=== PATIENT | female | born 1945 | race Caucasian/White ===

== ENCOUNTER 2019-09-19 07:06 | Day surgery (SDC) | payer OTHER, BC ==
[2019-09-18 09:35] VITALS: BMI 36.3
[~2019-09-19 07:06] MED LIST: POVIDONE-IODINE 5% OPHTHALMIC PREP 30 ML SOLUTION OS ONE; TETRACAINE 0.5% HCL 0.6ML DROPPER.BOTTLE OS ONE
[2019-09-19] MEDS: OFLOXACIN 0.3% OPHTHALMIC SOLUTION 5 ML BOTTLE OP SCH ×3 (07:45→08:05)
[2019-09-19] MEDS: TROPICAMIDE 1% OPHTH SOLN 15 ML BOTTLE OP SCH ×3 (07:45→08:05)
[2019-09-19] MEDS: CYCLOPENTOLATE HCL 1% OPHTH SOLN 2 ML BOTTLE OP SCH ×3 (07:45→08:05)
[2019-09-19] MEDS: PHENYLEPHRINE 2.5% OPHTH SOLN 15 ML BOTTLE OP SCH ×3 (07:45→08:05)
[2019-09-19] MEDS: KETOROLAC TROMETHAMINE 0.5% EYE DROP 1 DROP DROPS OP SCH ×3 (07:45→08:05)
[2019-09-19] MEDS ORDERED: OFLOXACIN 0.3% OPHTHALMIC SOLUTION 5 ML BOTTLE ONE (07:46)
[2019-09-19] MEDS ORDERED: CYCLOPENTOLATE HCL 1% OPHTH SOLN 2 ML BOTTLE ONE (07:46)
[2019-09-19] MEDS ORDERED: TROPICAMIDE 1% OPHTH SOLN 15 ML BOTTLE ONE (07:47)
[2019-09-19] MEDS ORDERED: PHENYLEPHRINE 2.5% OPHTH SOLN 15 ML BOTTLE ONE (07:47)
[2019-09-19] MEDS ORDERED: KETOROLAC TROMETHAMINE 0.5% EYE DROP 1 DROP DROPS ONE (07:50)
[2019-09-19] MEDS ORDERED: ACETAMINOPHEN 325 MG TABLET (FP) PO PRN (08:34)
[2019-09-19] MEDS ORDERED: MIDAZOLAM HCL 2 MG/2 ML SINGLE DOSE VIAL ONE (09:03)
[2019-09-19] MEDS ORDERED: TETRACAINE 0.5% HCL 0.6ML DROPPER.BOTTLE OS ONE (09:11)
[2019-09-19] MEDS ORDERED: EPINEPHrine/PF 1 MG/1 ML (1:1,000) AMPULE ONE (09:12)
[2019-09-19] MEDS ORDERED: TRYPAN BLUE 0.5 ML DISP.SYRIN ONE (09:13)
[2019-09-19] MEDS ORDERED: LIDOCAINE HCL/PF 1% SDV 5ML VIAL ONE (09:13)
[2019-09-19] MEDS ORDERED: POVIDONE-IODINE 5% OPHTHALMIC PREP 30 ML SOLUTION OS ONE (09:13)
[2019-09-19] MEDS ORDERED: POVIDONE-IODINE 5% OPHTHALMIC PREP 30 ML SOLUTION ONE (09:14)
[2019-09-19] MEDS ORDERED: WATER FOR INJ,STERILE 10 ML ONE (09:14)
[2019-09-19] MEDS ORDERED: ACETYLCHOLINE 1:100 INTRA-OCUL 20 MG/2 ML KIT ONE (09:14)
[2019-09-19] MEDS ORDERED: LIDOCAINE HCL 1% PRESERVATIVE FREE - 30ML VIAL IO ONE (09:21)
[2019-09-19] MEDS ORDERED: CHONDROITIN SU A/HYALUR SOD 1 KIT IO ONE (09:26)
[2019-09-19] MEDS ORDERED: EPINEPHrine/PF 1 MG/1 ML (1:1,000) AMPULE SQ ONE (09:26)
[2019-09-19] MEDS ORDERED: CHONDROITIN SU A/HYALUR SOD 1 KIT ONE (09:30)
[2019-09-19 10:09] VITALS: TEMP 97.5
[2019-09-19 11:11] VITALS: BP 121/62; PULSE 74
--- NOTE | 2019-09-20 10:54 | SPEC ---
DATE OF OPERATION: 09/19/2019 PREOPERATIVE DIAGNOSIS: Cataract, left eye. POSTOPERATIVE DIAGNOSIS: Cataract, left eye. PROCEDURE: Phacoemulsification of left cataract with posterior chamber intraocular lens implantation. Lens used [id number], 23.0 Diopter power, Serial No. [id number]. SURGEON: Fredy Carcamo M.D. ANESTHESIA: Topical MAC. COMPLICATIONS: None. PROCEDURE: The patient was brought to the operating room and correctly identified along with the operative site and the correct intraocular lens valdez. The patient was then prepped and draped in the usual sterile fashion including 5% Betadine solution in the conjunctival sac and an eyelid drape. An eyelid speculum was then placed in the eye. A paracentesis port was created and approximately 0.5 mL of preservative free Lidocaine was then injected into the eye. Viscoelastic was then injected to inflate the anterior chamber. A temporal clear corneal wound was created. A continuous circular capsulorrhexis was performed. The nucleus was then hydrodissected with BSS and removed with phacoemulsification. The remaining cortical material was irrigated and aspirated. Viscoelastic was injected to inflate the capsular bag and the intraocular lens was then implanted into the capsular bag. The remaining Viscoelastic was irrigated and aspirated from the eye. The IOL was noted to be well centered and completely covered by the anterior capsulorrhexis. Topical vancomycin was placed and the eye patched and shielded. All wounds were tested and found to be watertight. No suture was placed. The eye was then shielded. The patient was then discharged from the operating room in stable condition. FREDY CARCAMO M.D. [id number]
== END 2019-09-19 11:00 | disposition home or self-care (01) ==
LOC: JASU-SURG 07:06
PROVIDERS: ATTEND Ophthalmology
PROC: 08RK3JZ Replacement of Left Lens with Synthetic Substitute, Percutaneous Approach (ICD-10-PCS; principal; 2019-09-19 09:00)
DX: H26.9 Unspecified cataract (principal); E11.9 Type 2 diabetes mellitus without complications; I10 Essential (primary) hypertension
CPT/HCPCS: 82962

== ENCOUNTER 2019-10-03 06:16 | Day surgery (SDC) | payer OTHER, BC ==
[2019-10-01 16:08] VITALS: BMI 36.3
[~2019-10-03 06:16] MED LIST changes: +ACETAMINOPHEN 325 MG TABLET (FP) PO PRN; +CYCLOPENTOLATE HCL 1% OPHTH SOLN 2 ML BOTTLE OP SCH; +KETOROLAC TROMETHAMINE 0.5% EYE DROP 1 DROP DROPS OP SCH; +OFLOXACIN 0.3% OPHTHALMIC SOLUTION 5 ML BOTTLE OP SCH; +PHENYLEPHRINE 2.5% OPHTH SOLN 15 ML BOTTLE OP SCH; -POVIDONE-IODINE 5% OPHTHALMIC PREP 30 ML SOLUTION OS ONE; -TETRACAINE 0.5% HCL 0.6ML DROPPER.BOTTLE OS ONE; +TROPICAMIDE 1% OPHTH SOLN 15 ML BOTTLE OP SCH
[2019-10-03] MEDS ORDERED: TROPICAMIDE 1% OPHTH SOLN 15 ML BOTTLE ONE (06:37)
[2019-10-03] MEDS ORDERED: OFLOXACIN 0.3% OPHTHALMIC SOLUTION 5 ML BOTTLE ONE (06:37)
[2019-10-03] MEDS ORDERED: CYCLOPENTOLATE HCL 1% OPHTH SOLN 2 ML BOTTLE ONE (06:37)
[2019-10-03] MEDS ORDERED: PHENYLEPHRINE 2.5% OPHTH SOLN 15 ML BOTTLE ONE (06:37)
[2019-10-03] MEDS ORDERED: KETOROLAC TROMETHAMINE 0.5% EYE DROP 1 DROP DROPS ONE (06:38)
[2019-10-03] MEDS ORDERED: TROPICAMIDE 1% OPHTH SOLN 15 ML BOTTLE OD ONE ×3 (06:50→07:10)
[2019-10-03] MEDS ORDERED: KETOROLAC TROMETHAMINE 0.5% EYE DROP 1 DROP DROPS OD ONE ×3 (06:50→07:10)
[2019-10-03] MEDS ORDERED: PHENYLEPHRINE 2.5% OPHTH SOLN 15 ML BOTTLE OD ONE ×3 (06:50→07:10)
[2019-10-03] MEDS ORDERED: OFLOXACIN 0.3% OPHTHALMIC SOLUTION 5 ML BOTTLE OD ONE ×3 (06:50→07:10)
[2019-10-03] MEDS ORDERED: CYCLOPENTOLATE HCL 1% OPHTH SOLN 2 ML BOTTLE OD ONE ×3 (06:50→07:10)
[2019-10-03] MEDS ORDERED: CHONDROITIN SU A/HYALUR SOD 1 KIT ONE (07:06)
[2019-10-03] MEDS ORDERED: VANCOMYCIN 500 MG VIAL (RESTRICTED TO ID ONLY) ONE (07:10)
[2019-10-03] MEDS ORDERED: EPINEPHrine/PF 1 MG/1 ML (1:1,000) AMPULE ONE (07:10)
[2019-10-03] MEDS ORDERED: TRYPAN BLUE 0.5 ML DISP.SYRIN ONE (07:11)
[2019-10-03] MEDS ORDERED: POVIDONE-IODINE 5% OPHTHALMIC PREP 30 ML SOLUTION ONE (07:11)
[2019-10-03] MEDS ORDERED: WATER FOR INJ,STERILE 10 ML ONE (07:11)
[2019-10-03] MEDS ORDERED: LIDOCAINE HCL/PF 1% SDV 5ML VIAL ONE (07:11)
[2019-10-03] MEDS ORDERED: TETRACAINE 0.5% OPHTH SOLN 2 ML BOTTLE ONE (07:11)
[2019-10-03] MEDS ORDERED: ACETYLCHOLINE 1:100 INTRA-OCUL 20 MG/2 ML KIT ONE (07:11)
[2019-10-03] MEDS ORDERED: MIDAZOLAM HCL 2 MG/2 ML SINGLE DOSE VIAL ONE (08:00)
[2019-10-03] MEDS ORDERED: TETRACAINE 0.5% OPHTH SOLN 2 ML BOTTLE TP ONE (08:05)
[2019-10-03] MEDS ORDERED: LIDOCAINE HCL 1% PRESERVATIVE FREE - 30ML VIAL IO ONE (08:15)
[2019-10-03] MEDS ORDERED: CHONDROITIN SU A/HYALUR SOD 1 KIT IO ONE (08:15)
[2019-10-03] MEDS ORDERED: EPINEPHrine/PF 1 MG/1 ML (1:1,000) AMPULE SQ ONE (08:25)
[2019-10-03 09:30] VITALS: BP 125/60; PULSE 66; TEMP 98.3
--- NOTE | 2019-10-03 12:10 | SPEC ---
DATE OF OPERATION: DATE OF DICTATION: 10/03/2019 OPERATION: Phacoemulsification of right cataract with posterior chamber intraocular lens implantation, the lens used SN60WF, 23.5-diopter power, serial number [id number]. PREOPERATIVE DIAGNOSIS: Cataract, right eye. POSTOPERATIVE DIAGNOSIS: Cataract, right eye. SURGEON: Fredy Carcamo MD ANESTHESIA: Topical, MAC. COMPLICATIONS: None. PROCEDURE: The patient was brought to the operating room and correctly identified along with the operative site and the correct intraocular lens valdez. The patient was then prepped and draped in the usual sterile fashion including 5% Betadine solution in the conjunctival sac and an eyelid drape. An eyelid speculum was then placed in the eye. A paracentesis port was created and approximately 0.5 mL of preservative-free lidocaine was then injected into the eye. Viscoelastic was then injected to inflate the anterior chamber. A temporal clear corneal wound was created. A continuous circular capsulorrhexis was performed. The nucleus was then hydrodissected with BSS and removed with phacoemulsification. The remaining cortical material was irrigated and aspirated. Viscoelastic was injected to inflate the capsular bag and the intraocular lens was then implanted into the capsular bag. The remaining viscoelastic was irrigated and aspirated from the eye. The IOL was noted to be well centered and completely covered by the anterior capsulorrhexis. Topical vancomycin was placed and the eye patched and shielded. All wounds were tested and found to be watertight. No suture was placed. The eye was then shielded. The patient was then discharged from the operating room in stable condition. FREDY CARCAMO M.D. [id number]
== END 2019-10-03 09:25 | disposition home or self-care (01) ==
LOC: JASU-SURG 06:16
PROVIDERS: ATTEND Ophthalmology
PROC: 08RJ3JZ Replacement of Right Lens with Synthetic Substitute, Percutaneous Approach (ICD-10-PCS; principal; 2019-10-03 08:00)
DX: H26.9 Unspecified cataract (principal); E11.9 Type 2 diabetes mellitus without complications
CPT/HCPCS: 82962